=== PATIENT | male | born 1980 | race Hispanic/Latino ===

== ENCOUNTER 2021-11-24 10:40 | Emergency (ER) | payer SELFPAY ==
[~2021-11-24] VITALS: Ht 167.6 cm; Wt 88.6 kg
[2021-11-24] VITALS (13 sets, daily range): BP systolic 114–143; BP diastolic 75–98
[~2021-11-24 10:40] MED LIST: AMOXICILLIN500 MG OR; AMOXICILLIN500 MG PO; BACLOFEN10 MG PO; NAPROSYN500 MG PO; NEOMYCIN/POLYMYXIN/G AS; PRILOSEC40 MG PO; SOLU-MEDROL125 MG IM; ULTRAM50 MG OR
[2021-11-24 11:06] LABS: HEMATOCRIT 45.3 % (39.0-50.0); HEMOGLOBIN 15.3 g/dl (14.0-18.0); IMMATURE GRANULOCYTES 0.2 % (0.0-5.0); MEAN CELL VOLUME 93.4 fL CALC (80.0-100.0); MEAN CORPUSCULAR HGB 31.5 pG CALC (26.0-32.0); MEAN CORPUSCULAR HGB CONC 33.8 g/dL CAL (32.0-36.0); NEUT# 1.68 thou/uL (1.82-7.42); RED BLOOD COUNT 4.85 mill/uL (4.70-6.10)
[2021-11-24 11:44] LABS: ALBUMIN 4.6 g/dL (3.2-5.0); ALKALINE PHOSPHATASE 73 u/l (38-126); ANION GAP 16 (6-22 (CALC)); BILIRUBIN, TOTAL 0.7 mg/dL (0.0-1.4); BUN 5 mg/dL (9-20); BUN/CREATININE RATIO 8 (12-20 (CALC)); CARBON DIOXIDE 24 mmol/l (22-30); CHLORIDE 107 mmol/l (95-108); CREATININE 0.6 mg/dL (0.7-1.3); GFR > 60 ML/MIN (>=60 (CALC)); GFR FOR AFR.AMER. > 60 ML/MIN (>=60 (CALC)); SGOT/AST 108 u/l (17-59); SODIUM 143 mmol/l (137-146)
[2021-11-24] MEDS ORDERED: PROAIR HFA108 MCG/AC PO (13:19)
[2021-11-24] MEDS ORDERED: MOTRIN400 MG/TAB PO (13:19)
== END 2021-11-24 13:44 | disposition home or self-care (01) | DRG 313 ==
LOC: ED 10:40
PROVIDERS: Family Medicine
DX: R07.89 Other chest pain (principal)